=== PATIENT | male | born 1980 | race African-American/Black ===

== ENCOUNTER 2020-02-23 17:38 | Emergency (ER) | payer MEDICAID ==
[~2020-02-23] VITALS: Ht 165.1 cm; Wt 84.0 kg
[2020-02-23 17:46] VITALS: BP 170/98
[2020-02-23] MEDS ORDERED: CEFTRIAXONE SODIUM 250 MG/VIAL IM ONE (18:45)
[2020-02-23] MEDS ORDERED: AZITHROMYCIN 500 MG TABLET PO ONE (18:45)
[2020-02-23 19:30] LABS: CLARITY URINE TURBID (CLEAR); COLOR URINE DARK YELLOW (YELLOW); KETONES URINE TRACE (NEGATIVE); LEUKOCYTE ESTERASE URINE 3+ (NEGATIVE); NITRITE URINE NEGATIVE (NEGATIVE); OCCULT BLOOD URINE 1+ (NEGATIVE); PH URINE 5.5 (4.5-8.0); PROTEIN URINE 2+ (NEGATIVE); SPECIFIC GRAVITY URINE 1.034 (1.005-1.030)
[2020-02-27 06:07] LABS: NEISSERIA GONORRHOEAE NAA Positive (Negative)
== END 2020-02-23 20:35 | disposition home or self-care (01) ==
LOC: ER 17:38
DX: Z20.2 Contact with and (suspected) exposure to infections with a predominantly sexual mode of transmission (principal)
CPT/HCPCS: 81003; 87086; 87491; 87591; 96372; 99283; J0696

== ENCOUNTER 2020-06-06 22:24 | Emergency (ER) | payer MEDICAID ==
[~2020-06-06] VITALS: Ht 167.6 cm; Wt 82.0 kg
[2020-06-06 22:27] VITALS: BP 180/123
[2020-06-07] MEDS ORDERED: BACITRACIN 15GM TUBE TOP ONE (00:30)
== END 2020-06-07 01:19 | disposition home or self-care (01) ==
LOC: ER 22:24
DX: Z48.00 Encounter for change or removal of nonsurgical wound dressing (principal); S41.112A Laceration without foreign body of left upper arm, initial encounter; R03.0 Elevated blood-pressure reading, without diagnosis of hypertension; W26.8XXA Contact with other sharp object(s), not elsewhere classified, initial encounter; Y93.89 Activity, other specified; Y92.89 Other specified places as the place of occurrence of the external cause
CPT/HCPCS: 29125; 99283

== ENCOUNTER 2021-02-25 01:59 | Emergency (ER) | payer MEDICAID ==
[~2021-02-25] VITALS: Ht 167.6 cm; Wt 83.0 kg
[2021-02-25] MEDS ORDERED: MORPHINE SULFATE 10 MG/ML CPJ IM ONE (02:30)
[2021-02-25] MEDS ORDERED: HYDRALAZINE HCL 25MG TABLET PO ONE (05:00)
[2021-02-25] MEDS ORDERED: FLUORESCEIN SODIUM 1MG/STRIP RIGHTEYE ONE (05:30)
[2021-02-25] MEDS ORDERED: TETRACAINE 0.5% OPHTH DROPS 4ML RIGHTEYE ONE (05:30)
[2021-02-25] MEDS ORDERED: CLONIDINE 0.2MG TABLET PO ONE (06:00)
[2021-02-25] MEDS ORDERED: BACITRACIN ZINC OINT UDPKT TOP ONE (06:00)
[2021-02-25] MEDS ORDERED: TOPUD MT (06:03)
[2021-02-25] MEDS ORDERED: TRAM50TA MT (06:03)
[2021-02-25 07:00] VITALS: BP 152/91
== END 2021-02-25 07:09 | disposition home or self-care (01) ==
LOC: ER 01:59
DX: S06.890A Other specified intracranial injury without loss of consciousness, initial encounter (principal); I10 Essential (primary) hypertension; V49.59XA Passenger injured in collision with other motor vehicles in traffic accident, initial encounter; Y93.89 Activity, other specified; Y92.488 Other paved roadways as the place of occurrence of the external cause
CPT/HCPCS: 70450; 70486; 72125; 73030; 96372; 99285; J2270; L3670